=== PATIENT | male | born 1985 | race Caucasian/White ===

== ENCOUNTER 2017-09-13 19:49 | Emergency (ER) | payer SELFPAY ==
[2017-09-13 20:07] VITALS: BP 145/79
--- NOTE | 2017-09-13 20:34 | ER Document Report ---
ED General - General Stated Complaint: MUSCLE CRAMPS Time Seen by Provider: 09/13/17 19:56 TRAVEL OUTSIDE OF THE [place] IN LAST 30 DAYS: No - HPI Patient complains to provider of: Muscle cramps Notes: Patient coming in for evaluation for muscle pain or cramps. 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 EMS did give the patient approximate 500 cc of lactated Ringer. Upon my initial evaluation I did walk into room #44 identify myself patient was on phone asking her staff about the address of the hospital and continues to stay on his phone I did wait for obligatory 20 sec count for leaving the room. Upon later returning patient stating that he feels much better and is ready to be discharged home no longer is having any symptoms. Denies fevers chills nausea vomiting diarrhea. Patient states his he is unaware of the left color of his P last time he urinated. No myalgias no muscle cramps at this time - Related Data Allergies/Adverse Reactions: No Known Allergies Allergy (Unverified 09/13/17 20:00) Past Medical History - Social History Smoking Status: Never Smoker Frequency of alcohol use: Occasional Drug Abuse: None Family History: Reviewed & Not Pertinent Patient has suicidal ideation: No Patient has homicidal ideation: No Renal/ Medical History: Denies: Hx Peritoneal Dialysis Review of Systems - Review of Systems Constitutional: No symptoms reported EENT: No symptoms reported Cardiovascular: No symptoms reported Respiratory: No symptoms reported Gastrointestinal: No symptoms reported Genitourinary: No symptoms reported Male Genitourinary: No symptoms reported Musculoskeletal: Other - Muscle cramps Skin: No symptoms reported Hematologic/Lymphatic: No symptoms reported Neurological/Psychological: No symptoms reported -: Yes All other systems reviewed and negative Physical Exam - Vital signs Vitals: Temp Pulse Resp BP Pulse Ox 98.0 F 101 H 16 145/79 H 91 L 09/13/17 19:56 09/13/17 19:56 09/13/17 19:56 09/13/17 19:56 09/13/17 19:56 Interpretation: Normal - General General appearance: Appears well, Alert - HEENT Head: Normocephalic, Atraumatic Eyes: Normal Pupils: PERRL - Respiratory Respiratory status: No respiratory distress Chest status: Nontender Breath sounds: Normal Chest palpation: Normal - Cardiovascular Rhythm: Regular Heart sounds: Normal auscultation Murmur: No - Abdominal Inspection: Normal Distension: No distension Bowel sounds: Normal Tenderness: Nontender Organomegaly: No organomegaly - Back Back: Normal, Nontender - Extremities General upper extremity: Normal inspection, Nontender, Normal color, Normal ROM , Normal temperature General lower extremity: Normal inspection, Nontender, Normal color, Normal ROM , Normal temperature, Normal weight bearing. No: Miguel's sign - Neurological Neuro grossly intact: Yes Cognition: Normal Orientation: AAOx4 [place] Coma Scale Eye Opening: Spontaneous [place] Coma Scale Verbal: Oriented Marti Coma Scale Motor: Obeys Commands Marti Coma Scale Total: 15 Speech: Normal Motor strength normal: LUE, RUE, LLE, RLE Sensory: Normal - Psychological Associated symptoms: Normal affect, Normal mood - Skin Skin Temperature: Warm Skin Moisture: Dry Skin Color: Normal Course - Re-evaluation Re-evalutation: 09/14/17 03:33 Patient coming most commands more likely from dehydration patient asymptomatic upon my evaluation patient will be discharged home. - Vital Signs Vital signs: Temp Pulse Resp BP Pulse Ox 98.0 F 92 16 145/79 H 95 09/13/17 19:56 09/13/17 20:28 09/13/17 19:56 09/13/17 19:56 09/13/17 20:28 Discharge - Discharge Clinical Impression: Dehydration, Muscle cramps Condition: Good Disposition: HOME, SELF-CARE Instructions: Dehydration ([facility]) Additional Instructions: Your evaluation is consistent with muscle spasm is more likely caused by dehydration. Please make sure you are drinking plenty water and fluids containing electrolytes such as Gatorade or Powerade. Return to the ER for any concerning issues.
== END 2017-09-13 20:36 | disposition home or self-care (01) ==
LOC: ER 19:49
DX: E86.0 Dehydration (principal); R25.2 Cramp and spasm
CPT/HCPCS: 99284